=== PATIENT | female | born 1960 | race Caucasian/White ===

== ENCOUNTER 2018-03-12 10:51 | Emergency (ER) | payer OTHER ==
[2018-03-12] MEDS: NAPROXEN 500 MG TAB PO (11:35)
== END 2018-03-12 11:49 | disposition home or self-care (01) ==
LOC: FTE 10:51
DX: M54.9 Dorsalgia, unspecified (principal); I10 Essential (primary) hypertension
CPT/HCPCS: 99284; Z7502